=== PATIENT | female | born 1960 | race Caucasian/White ===

== ENCOUNTER 2024-08-01 22:56 | Emergency (ER) | payer SELFPAY ==
[~2024-08-01] VITALS: Ht 167.6 cm; Wt 81.6 kg
[2024-08-01] MEDS ORDERED: DICY10CA13 PO (23:24)
[2024-08-01] MEDS ORDERED: IBUP-1957 PO (23:25)
[2024-08-01] MEDS ORDERED: PRED50TA PO (23:25)
[2024-08-01] MEDS ORDERED: dexaMETHasone SOD PHOSPHATE 1 ML ONE (23:27)
[2024-08-01] MEDS ORDERED: KETOROLAC TROMETHAMINE INJ 30 MG/ML VIAL ONE (23:27)
[2024-08-01] MEDS ORDERED: CYCLOBENZAPRINE 10 MG TABLET ONE (23:28)
[2024-08-01] MEDS: CYCLOBENZAPRINE 10 MG TABLET PO ONE (23:51)
[2024-08-01] MEDS: dexaMETHasone SOD PHOSPHATE 4 MG/ML VIAL IM ONE (23:51)
[2024-08-01] MEDS: KETOROLAC TROMETHAMINE INJ 30 MG/ML VIAL IM ONE (23:51)
[2024-08-01 23:57] VITALS: BP 128/89; TEMP 98; O2SAT 98
== END 2024-08-01 23:57 | disposition home or self-care (01) ==
LOC: ER 23:05
DX: M62.838 Other muscle spasm (principal); M54.12 Radiculopathy, cervical region; E03.9 Hypothyroidism, unspecified; M79.601 Pain in right arm; Z79.1 Long term (current) use of non-steroidal anti-inflammatories (NSAID); Z79.52 Long term (current) use of systemic steroids
CPT/HCPCS: 99284; 96372; J1885; J1100